=== PATIENT | female | born 1960 | race Caucasian/White ===

== ENCOUNTER → 2025-03-16 | Outpatient (CLI) | payer MEDICARE, OTHER ==
[~2025-03-16] MED LIST: LIDOCAINE 1% MDV 20ML VIAL As Ordered ONE
[2025-03-16 13:12] VITALS: TEMP 97.7
[2025-03-16 13:40] VITALS: BP 158/80; O2SAT 98
== END ==
LOC: M IRPRO 12:53
PROVIDERS: ATTEND Otolaryngology
DX: D37.030 Neoplasm of uncertain behavior of the parotid salivary glands (principal)

== ENCOUNTER 2025-07-01 07:04 | Day surgery (SDC) | payer MEDICARE ==
[~2025-07-01] VITALS: Ht 147.3 cm; Wt 95.7 kg
[~2025-07-01 07:04] MED LIST changes: +AMLO1TAB24 PO; +ASPI81TA26 PO; +CYCLOPENTOLATE 1% OPHTH SOLN 2 ML BTL OS SCH; +HYDR-3490 PO; -LIDOCAINE 1% MDV 20ML VIAL As Ordered ONE; +LIDOCAINE 3.5% 1 ML OPHTH TOPICAL GEL OU ONE; +LOSA100T46 PO; +MAGN64TASA PO; +METF10004 PO; +OFLOXACIN 0.3 % (OCUFLOX) OPTH SOL 5ML OS ONE; +OMEP-173 PO; +PHENYLEPHRINE 10% OPHTH SOL 5ML OS PRN; +PHENYLEPHRINE 2.5% OPHTH SOL 2ML OS SCH; +POTA-150 PO; +PRAV10TA43 PO; +SERT50TA29 PO; +TROPICAMIDE 1% OPHTH SOLN 15ML OS SCH; +TRUL10IN SC
[2025-07-01] MEDS ORDERED: MIDAZOLAM INJ 2 MG/2 ML VIAL As Ordered ONE (07:09)
[2025-07-01] MEDS: LIDOCAINE 1% SDV 5 ML VIAL As Ordered ONE (09:12)
[2025-07-01] MEDS: CEFUROXIME 1 MG/0.1 ML INTRACAMERAL INJ As Ordered ONE (09:12)
[2025-07-01] MEDS: BSS IRRIG/VANCO(10MG)/TOBRA(5MG)/EPINEPH(1:1000-0.5CC)500ML BAG-ORONLY As Ordered ONE (09:12)
[2025-07-01 09:26] VITALS: BP 124/58; TEMP 97.4; O2SAT 99
== END 2025-07-01 10:04 | disposition home or self-care (01) ==
LOC: M SDC 07:04
PROVIDERS: ATTEND Ophthalmology
DX: H25.12 Age-related nuclear cataract, left eye (principal); E11.9 Type 2 diabetes mellitus without complications; Z79.899 Other long term (current) drug therapy; Z98.41 Cataract extraction status, right eye
CPT/HCPCS: 66984; J0697; J2250; J3010; V2632